=== PATIENT | female | born 1945 | race Caucasian/White ===

== ENCOUNTER 2018-04-25 16:10 | Inpatient (IN) | payer MEDICARE, BC ==
[~2018-04-25] VITALS: Ht 162.6 cm; Wt 86.2 kg
--- NOTE | ~2018-04-25 | EC ---
PATIENT:IVANIA DAVIS DATE OF SERVICE: 04/26/18 SEX: F MEDICAL RECORD: [id number] DATE OF : 47 LOCATION:[facility] AGE OF PATIENT: 72 ADMISSION DATE: 04/26/18 REFERRING PHYSICIAN: INTERPRETING PHYSICIAN: TAMMY HA MD ECHOCARDIOGRAM REPORT ECHO CHARGES 4 ECHO COMPLETE Date: 04/26 CLINICAL DIAGNOSIS: ECHOCARDIOGRAPHIC MEASUREMENTS (adult normal given) AC root (d.<3.7cm) 3.2 cm LV Septum d (<1.2 cm> 1.4 cm Valve Excursion 1.5 cm LV Septum (systole) 1.6 cm Left Atria (s.<4.0cm> 4.0 cm LVPW d(<1.2cm) 1.1 cm RV (d.<2.3cm) 2.7 cm LVPW (sytole) 1.5 cm LV diastole(<5.6CM) 4.8 cm MV E-F(>70mm/sec) cm LV systole 3.0 cm LVOT Diameter 1.9 cm MV exc.(>10mm) cm Est.ejection fraction (50-75%) % DOPPLER: LVIT cm/sec A 142 cm/sec E 90 cm/sec LA cm/sec RVSP 34.5 mmHg LVOT 97 cm/sec AOP1/2T m/s Asc. Ao 156 cm/sec RVOT 79 cm/sec RA cm/sec PA 80 cm/sec AV Gradient Peak 9.7 mmHg AV Mean 5.6 mmHg AV Area 1.6 cm MV Gradient Peak 19.4 mmHg MV Mean 11 mmHg MV Area cm COMMENTS: Systems Qa Analyst: Neonatal Social Worker: Emil Ha TAPE# PACS Pericardial Effusion N DATE OF SERVICE: PROCEDURE: Transthoracic echocardiogram. FINDINGS: 1. There is moderate concentric left ventricular hypertrophy with inflow characteristics consistent with diastolic dysfunction. Overall, ejection fraction is 55%. There are no obvious regional wall motion abnormalities. 2. The right ventricle was normal size, normal shape and function. 3. The left atrium is mildly dilated. ECHOCARDIOGRAM REPORT [id number] IVANIA DAVIS 4. The aortic valve is normal trileaflet structure. 5. The mitral valve is normal. 6. The tricuspid valve is normal. The RVSP is mildly elevated at 35 mmHg. 7. Pericardium is normal. CONCLUSIONS: The patient has evidence of hypertensive heart disease, otherwise normal echocardiogram for stated age. TRANSINT:[id number] Voice Confirmation ID: [id number] DOCUMENT ID: [id number] TAMMY HA MD at 0956 CC: [id number] DICTATION DATE: 04/27/18 08 CHANNEL CEMENTER OUTSOLE MACHINE: 04/27/18 0842 DIS IN 04/28/18 [place] [id number] [place] [id number]
[2018-04-25] MEDS ORDERED: NORVASC10 MG PO (16:17)
[2018-04-25] MEDS ORDERED: ELIQUIS5 MG PO (16:17)
[2018-04-25] MEDS ORDERED: CHILDREN'S ASPI81 MG PO (16:18)
[2018-04-25] MEDS ORDERED: CIPRO500 MG PO (16:18)
[2018-04-25] MEDS ORDERED: COREG6.25 MG (16:18)
[2018-04-25] MEDS ORDERED: FLUTICASONE PRO16 GM (16:19)
[2018-04-25] MEDS ORDERED: CATAPRES0.1 MG PO (16:19)
[2018-04-25] MEDS ORDERED: GLIMEPIRIDE2 MG (16:20)
[2018-04-25] MEDS ORDERED: FUROSEMIDE20 MG PO (16:20)
[2018-04-25] MEDS ORDERED: GABAPENTIN100 MG PO (16:20)
[2018-04-25] MEDS ORDERED: LEVEMIR100 U/M1 SQ (16:21)
[2018-04-25] MEDS ORDERED: HYDROCHLOROTHIA25 MG PO (16:21)
[2018-04-25] MEDS ORDERED: NOVOLOG100 U/M1 SQ (16:21)
[2018-04-25] MEDS ORDERED: ZESTRIL40 MG PO (16:22)
[2018-04-25] MEDS ORDERED: PRAVACHOL40 MG PO (16:22)
[2018-04-25 16:37] VITALS: BP 128/66
[2018-04-25 17:14] LABS: APPEARANCE CLEAR (CLEAR); BILIRUBIN NEGATIVE (NEGATIVE); COLOR YELLOW (YELLOW); GLUCOSE NEGATIVE (NEGATIVE); KETONE NEGATIVE (NEGATIVE); NITRITE NEGATIVE (NEGATIVE); PROTEIN TRACE mg/dL (NEGATIVE); UROBILINOGEN NORMAL (NORMAL)
[2018-04-25 18:02] LABS: LIPASE 125 U/L (73-393); MAGNESIUM - SERUM 1.9 mg/dL (1.8-2.4); PRO BNP 632 pg/mL (0-125); TROPONIN-I < 0.017 ng/mL (0.000-0.060)
[2018-04-25 18:55] LABS: BILIRUBIN - TOTAL 0.36 mg/dL (0.2-1.3); CALCIUM 8.9 mg/dL (8.5-10.1); CARBON DIOXIDE 22.2 mmol/L (21.0-32.0); CREATININE - SERUM 1.8 mg/dL (0.6-1.3); POTASSIUM - SERUM 4.2 mmol/L (3.5-5.1)
[2018-04-25 21:02] VITALS: BP 154/63
[2018-04-26 02:30] VITALS: BP 140/63; BMI 32.7
[2018-04-26 03:52] VITALS: BP 136/62
[2018-04-26 06:47] LABS: ALBUMIN 2.6 g/dL (3.4-5.0); ANION GAP 12.3 mmol/L (8-16); BILIRUBIN - TOTAL 0.3 mg/dL (0.2-1.3); CALCIUM 8.4 mg/dL (8.5-10.1); CARBON DIOXIDE 23.7 mmol/L (21.0-32.0); CREATININE - SERUM 1.6 mg/dL (0.6-1.3); PROTEIN - SERUM 6.3 g/dL (6.4-8.2)
[2018-04-26 07:15] LABS: BASOPHILS 0.1 % (0-2); EOSINOPHILS 4.6 % (0-7); HEMATOCRIT 33.8 % (36.0-48.0); HEMOGLOBIN 11.5 g/dL (12-16); IMMATURE GRANULOCYTES 0.3 % (0-5); LYMPHOCYTES 30.2 % (15-50); MCH 30.9 pg (26.0-34.0); MCV 90.9 fL (80.0-100.0); MEAN PLATELET VOLUME 9.9 fL (7.4-10.4); MONOCYTES 8.8 % (2-11); PLATELET COUNT 227 10x3/uL (130-400); RBC 3.72 10x6/uL (4.00-5.40); RDW 13.7 % (11.5-14.5); WBC 7.2 10x3/uL (4.8-10.8)
[2018-04-26 08:28] VITALS: BP 134/59
[2018-04-26 12:08] VITALS: BP 133/66
[2018-04-26 13:10] VITALS: BMI 32.6
[2018-04-26 13:51] VITALS: Ht 162.6 cm; Wt 86.2 kg
[2018-04-26 16:09] VITALS: BP 141/68
[2018-04-26 17:23] LABS: CKMB 1.3 U/L (0.0-3.6); CREATINE KINASE 78 UL (21-215)
[2018-04-26 17:24] LABS: TROPONIN-I < 0.017 ng/mL (0.000-0.060)
[2018-04-26 20:00] VITALS: BP 135/63
[2018-04-26 22:10] LABS: CKMB 1.4 U/L (0.0-3.6); CREATINE KINASE 75 UL (21-215)
[2018-04-26 22:12] LABS: TROPONIN-I < 0.017 ng/mL (0.000-0.060)
[2018-04-27 04:00] VITALS: BP 145/63
[2018-04-27 05:22] LABS: BASOPHILS 0.2 % (0-2); EOSINOPHILS 3.6 % (0-7); HEMATOCRIT 33.4 % (36.0-48.0); HEMOGLOBIN 11.4 g/dL (12-16); IMMATURE GRANULOCYTES 0.2 % (0-5); LYMPHOCYTES 35.9 % (15-50); MCH 31.2 pg (26.0-34.0); MCHC 34.1 g/dL (31.0-37.0); MCV 91.5 fL (80.0-100.0); MEAN PLATELET VOLUME 10.3 fL (7.4-10.4); MONOCYTES 8.6 % (2-11); NEUTROPHILS 51.5 % (40-80); PLATELET COUNT 227 10x3/uL (130-400); RBC 3.65 10x6/uL (4.00-5.40); RDW 13.5 % (11.5-14.5)
[2018-04-27 05:58] LABS: ALBUMIN 2.7 g/dL (3.4-5.0); ALKALINE PHOSPHATASE 49 U/L (46-116); ALT (SGPT) 20 U/L (10-68); BILIRUBIN - TOTAL 0.28 mg/dL (0.2-1.3); CALC OSMOLALITY 281 mosm/kg (275-300); CALCIUM 8.3 mg/dL (8.5-10.1); CARBON DIOXIDE 21.4 mmol/L (21.0-32.0); CHLORIDE - SERUM 104 mmol/L (98-107); CKMB 1.5 U/L (0.0-3.6); CREATINE KINASE 81 UL (21-215); CREATININE - SERUM 1.9 mg/dL (0.6-1.3); GLUCOSE 153 mg/dL (74-106); POTASSIUM - SERUM 4.1 mmol/L (3.5-5.1); PROTEIN - SERUM 6.5 g/dL (6.4-8.2); SODIUM 134 mmol/L (136-145); TROPONIN-I < 0.017 ng/mL (0.000-0.060); UREA NITROGEN 44 mg/dL (7-18); eGFR NON AFRICAN AMERICAN 28 mL/min (90-120)
[2018-04-27 09:10] VITALS: BP 143/102
[2018-04-27 09:17] LABS: FOLATE (FOLIC ACID) - SERUM >20.0 ng/mL (>3.0)
[2018-04-27 12:22] VITALS: BP 142/80
[2018-04-27 13:02] LABS: ERYTHROCYTE SEDIMENTATION RATE 24 mm/hr (0-30)
[2018-04-27 14:34] LABS: CREATININE - URINE 12.8 mg/dL (30-125); PRO/CRE RATIO URINE 2.7 mg/g; PROTEIN - URINE 34.1 mg/dL (0.0-11.9)
[2018-04-27 14:46] LABS: APPEARANCE CLEAR (CLEAR); BILIRUBIN NEGATIVE (NEGATIVE); COLOR STRAW (YELLOW); GLUCOSE 50 mg/dL (NEGATIVE); KETONE NEGATIVE (NEGATIVE); NITRITE NEGATIVE (NEGATIVE); PROTEIN TRACE mg/dL (NEGATIVE); SPECIFIC GRAVITY 1.005 (1.005-1.020); UROBILINOGEN NORMAL (NORMAL)
[2018-04-27 20:29] VITALS: BP 134/56
[2018-04-28 00:21] VITALS: BP 142/53
[2018-04-28 04:06] VITALS: BP 175/78
[2018-04-28 05:49] LABS: BASOPHILS 0.2 % (0-2); EOSINOPHILS 3.9 % (0-7); HEMATOCRIT 32.2 % (36.0-48.0); HEMOGLOBIN 10.9 g/dL (12-16); IMMATURE GRANULOCYTES 0.5 % (0-5); LYMPHOCYTES 33.4 % (15-50); MCH 30.9 pg (26.0-34.0); MCHC 33.9 g/dL (31.0-37.0); MCV 91.2 fL (80.0-100.0); MEAN PLATELET VOLUME 9.7 fL (7.4-10.4); MONOCYTES 9.3 % (2-11); NEUTROPHILS 52.7 % (40-80); PLATELET COUNT 199 10x3/uL (130-400); RBC 3.53 10x6/uL (4.00-5.40); RDW 13.5 % (11.5-14.5); WBC 6.6 10x3/uL (4.8-10.8)
[2018-04-28 06:42] LABS: ALBUMIN 2.5 g/dL (3.4-5.0); ANION GAP 13.4 mmol/L (8-16); BILIRUBIN - TOTAL 0.3 mg/dL (0.2-1.3); CALCIUM 7.9 mg/dL (8.5-10.1); CARBON DIOXIDE 21.7 mmol/L (21.0-32.0); CREATININE - SERUM 1.6 mg/dL (0.6-1.3); POTASSIUM - SERUM 4.1 mmol/L (3.5-5.1); PROTEIN - SERUM 6.1 g/dL (6.4-8.2)
[2018-04-28 09:23] VITALS: BP 156/75
[2018-04-28 12:44] VITALS: BP 121/50
[2018-04-28] MEDS ORDERED: ELIQUIS2.5 MG PO (14:17)
[2018-04-29 07:25] LABS: ALPHA FETOPROTEIN -(TUMOR MRK) 2.5 ng/mL (0.0-8.3); CA125 17.9 U/mL (0.0-38.1); CEA 3.4 ng/mL (0.0-4.7)
[2018-04-29 09:12] LABS: LUPUS - INTERPRETATION Comment: (()); LUPUS - THROMBIN TIME 16.9 sec (0.0-23.0); LUPUS - dRVVT 119.8 sec (0.0-47.0); LUPUS - dRVVT CONFIRMATION 0.9 ratio (0.8-1.2)
[2018-05-02 20:06] LABS: SPE - A/G RATIO 0.9 (0.7-1.7); SPE - ALBUMIN 2.7 g/dL (2.9-4.4); SPE - ALPHA-1 GLOBULIN 0.2 g/dL (0.0-0.4); SPE - ALPHA-2 GLOBULIN 0.8 g/dL (0.4-1.0); SPE - M-SPIKE Not Observed g/dL (Not Observed); SPE - TOTAL PROTEIN 5.7 g/dL (6.0-8.5)
[2018-05-04 09:19] LABS: UPE RAND - ALBUMIN 76.7 % (()); UPE RAND - ALPHA 1 GLOBULIN 3.1 % (()); UPE RAND - ALPHA 2 GLOBULIN 3.1 % (()); UPE RAND - BETA GLOBULIN 8.2 % (()); UPE RAND - GAMMA GLOBULIN 8.9 % (())
[2018-05-09 18:11] LABS: FACTOR II DNA ANALYSIS Negative (())
== END 2018-04-28 16:50 | disposition home or self-care (01) | DRG 176 ==
LOC: D.ER 16:10 → D.EDHOLD 16:56 → OBSVTIME 16:56 → D.MS 16:56
PROVIDERS: Family Medicine; Internal Medicine Hematology & Oncology; Internal Medicine Nephrology
DX: I26.99 Other pulmonary embolism without acute cor pulmonale (principal); I82.409 Acute embolism and thrombosis of unspecified deep veins of unspecified lower extremity; N39.0 Urinary tract infection, site not specified; N17.9 Acute kidney failure, unspecified; E72.11 Homocystinuria; E11.65 Type 2 diabetes mellitus with hyperglycemia; Z79.84 Long term (current) use of oral hypoglycemic drugs; F32.9 Major depressive disorder, single episode, unspecified; F41.9 Anxiety disorder, unspecified; E78.5 Hyperlipidemia, unspecified; I11.0 Hypertensive heart disease with heart failure; I50.9 Heart failure, unspecified